=== PATIENT | male | born 1980 | race Two or more races ===

== ENCOUNTER 2021-10-08 17:46 | Inpatient (IN) | payer OTHER ==
[~2021-10-08] VITALS: Ht 177.8 cm; Wt 84.4 kg
[2021-10-11] MEDS ORDERED: MESALAMINE800 MG (16:03)
[2021-10-14] MEDS ORDERED: ZITHROMAX500 MG PO (13:34)
[2021-10-14] MEDS ORDERED: METRONIDAZOLE500 MG PO (13:35)
[2021-10-14] MEDS ORDERED: PROTONIX40 MG PO (13:36)
[2021-10-14] MEDS ORDERED: INTESTINEX680 M1 PO (13:37)
== END 2021-10-14 14:42 | disposition home or self-care (01) | DRG 394 ==
LOC: ER 17:46 → SURG 23:51 → SURH 23:51 → SURG 10-09 03:28
PROVIDERS: ADMIT Colon & Rectal Surgery; ATTEND Colon & Rectal Surgery
PROC: BW21YZZ Computerized Tomography (CT Scan) of Abdomen and Pelvis using Other Contrast (ICD-10-PCS; 2021-10-08)
PROC: 0J9B3ZZ Drainage of Perineum Subcutaneous Tissue and Fascia, Percutaneous Approach (ICD-10-PCS; principal; 2021-10-09 10:00)
DX: K61.0 Anal abscess (principal); A04.72 Enterocolitis due to Clostridium difficile, not specified as recurrent; K50.10 Crohn's disease of large intestine without complications; K64.4 Residual hemorrhoidal skin tags; E86.0 Dehydration; E87.6 Hypokalemia; K62.89 Other specified diseases of anus and rectum; Z20.822 Contact with and (suspected) exposure to COVID-19